=== PATIENT | male | born 1970 | race Caucasian/White ===

== ENCOUNTER → 2019-08-08 | Outpatient (CLI) | payer OTHER ==
[~2019-08-08] MED LIST: FLEXERIL PO; NAPROSYN500 MG PO; NORCO 5-325 TA1 EACH PO; PAXIL40 MG PO
== END ==
LOC: SJCVCIMAG 10:11
DX: I07.1 Rheumatic tricuspid insufficiency (principal); R00.0 Tachycardia, unspecified; Z88.5 Allergy status to narcotic agent; Z87.891 Personal history of nicotine dependence; Z79.82 Long term (current) use of aspirin

== ENCOUNTER 2019-08-26 09:02 | Observation (INO) | payer OTHER ==
[~2019-08-26] VITALS: Ht 180.3 cm; Wt 103.9 kg
--- NOTE | ~2019-08-26 | D ---
[facility] [place] [address] DISCHARGE SUMMARY Name: RICHI DOMINGUEZ Room #: 212-P ADM [facility] M.R.#: [id number] Admission: 08/26/19 Attend Phys: Kennedy Liu Discharge: Date of : 70 Report #: [id number] THIS REPORT FOR: cc: Stefan Spencer MD, Neal A. MD Lammoglia, Francisco J. MD ~ THIS REPORT FOR: //name// CC: Kennedy Spencer DATE OF SERVICE: 08/27/2019 ADMITTING DIAGNOSIS: Syncope, dizziness with second-degree type 2 block. DISCHARGE DIAGNOSIS: Syncope, dizziness with second-degree type 2 block. PROCEDURES PERFORMED: 1. Dual chamber pacer implantation. 2. Supervision of conscious sedation. DISCHARGE MEDICATIONS: 1. Home meds. FOLLOWUP: Dr. Liu in 4 weeks. With nurse wound check in 7-10 days. BRIEF CLINICAL HISTORY: See history and physical in chart. HOSPITAL COURSE: The patient was admitted to the hospital and underwent uncomplicated dual-chamber pacer insertion with a Medtronic dual-chamber Wi-Fi enabled a pacemaker. Post-procedure, he remained hemodynamically and electrically stable without issues. He was allowed to ambulate. Chest x-ray demonstrated no pneumothorax and rhythm remained stable. He is now being discharged to home in improved and stable condition to follow up with the previously stated discharge instructions and medications. By: [id number] Kennedy Liu MD /micheal
[2019-08-26 10:28] VITALS: BP 110/75
[2019-08-26 10:51] LABS: ABSOLUTE NEUTROPHILS 4.3 thou/uL (1.4-8.2); EOSINOPHILS 1.8 % (0.0-3.0); HEMATOCRIT 44.7 % (42.0-52.0); HEMOGLOBIN 14.9 gm/dL (14.0-18.0); LYMPHOCYTES 25.8 % (24.0-44.0); MCH 28.6 pg (26.0-34.0); MCHC 33.4 g/dL (28.0-37.0); MCV 85.6 fL (80.0-100.0); PLATELET COUNT 259 thou/uL (150-400); POLYS 65.4 % (36.0-66.0); RBC 5.22 mil/uL (4.50-6.00); RDW 14.4 % (10.5-14.5); WBC 6.5 thou/uL (4.0-11.0)
[2019-08-26] MEDS ORDERED: PROAIR HFA8.5 GM INH (10:51)
[2019-08-26] MEDS ORDERED: XANAX1 MG PO (10:52)
[2019-08-26] MEDS ORDERED: ABILIFY 5 MG TAB5 M1 PO (10:53)
[2019-08-26] MEDS ORDERED: FISH OIL 1,0001 EAC9 PO (10:54)
[2019-08-26] MEDS ORDERED: ASPIR 8181 M1 PO (10:54)
[2019-08-26] MEDS ORDERED: HYDROCODON-ACE1 EAC5 PO (10:57)
[2019-08-26] MEDS ORDERED: LEVO-T25 MCG PO (10:58)
[2019-08-26] MEDS ORDERED: VIAGRA100 MG PO (10:58)
[2019-08-26 11:10] LABS: CALCIUM 8.8 mg/dL (8.5-10.1); POTASSIUM 4.2 mmol/L (3.5-5.1)
[2019-08-26 13:45] VITALS: BP 125/88
--- NOTE | 2019-08-26 14:35 | NUR ---
PT ORIENTED TO ROOM AND UNIT, BED LOW AND LOCKED, SIDE RAILS UP X3, CALL LIGHT IN REACH. TELE APPLIED, SHOULDER IMOBILIZER ON LEFT. PT WILL BE ON BEDREST FOR 6 HOURS. WILL CONTINUE TO ASSESS.
--- NOTE | 2019-08-26 16:32 | NUR ---
OK TO STOP FREQUENT VITALS S/P PPM PER DR. MOREIRA.
[2019-08-26 21:06] VITALS: BP 136/85
[2019-08-27 00:50] VITALS: BP 118/86
--- NOTE | 2019-08-27 03:22 | NUR ---
PT ALERT AND ORIENTED. VSS. LEFT ARM IMMOBOLIZER IN PLACE, S/P PACEMAKER PLACEMENT. DENIES SOB, OR CHEST PAIN. MILD INCISION PAIN ALLEVIATED BY PAIN MEDS. PT WAS OFF BEDREST BEFORE THE BEGINNING OF NOC SHIFT. AMBULATING INDEPENDENTLY TO THE BATHROOM . NO EVENTS OVER NIGHT. WILL CONTINUE WITH POC.
[2019-08-27 04:45] VITALS: BP 133/83
[2019-08-27 07:41] VITALS: BP 130/94
--- NOTE | 2019-08-27 08:11 | NUR ---
ASSUMED CARE OF PT AT SHIFT CHANGE: AWAKE, C/O PAIN IN LEFT SHOULDER, DECLINED HYDROCODONE, ASKED FOR TYELNOL SAID THEY BOTH WORK FOR HIM ABOUT THE SAME. CLEAR LUNGS IN SPITE OF SMOKING CURRENTLY. POSSIBLE D/C; GAVE HIM INFO ABOUT HOW THIS USUALLY WORKS TO AVOID ANY DISAPPOINTMENT. NO BM BUT HE STATES HE USUALLY DOES AFTER BFAST. LEFT FOR CXR. IMMOBILIZER ON PER ORDERS. WILL CONTINUE TO MONITOR. SEE SEPARATE INTERVENTIONS FOR ASSESSMENTS. ENCOURAGE DPT TO USE CALL LIGHT FOR ANY NEEDS
[2019-08-27 11:16] VITALS: BP 125/81
[2019-08-27 11:30] VITALS: BP 125/81
--- NOTE | 2019-08-27 12:48 | NUR ---
DISCHARGE GONE OVER, IV AND TELE REMOVED, FAMILY CALLED AND MED PICKED UP FROM [facility]. PT'S RIDE IS COMING FROM [facility]N [facility]. HE'S INSTRUCTED TO CALL WHEN RIDE IS HERE. ALL CONSENTS SIGNED. PT WILL BE WHEELED OUT TO ED TO RIDE UPON HER ARRIVAL
--- NOTE | 2019-08-27 12:57 | CATHLAB ---
[facility] [address] [place] [address] INVASIVE PROCEDURE REPORT Name: RICHI DOMINGUEZ Room #: 212-P [facility] Ev Clark#: [id number] Admission: 08/26/19 Attend Phys: Kennedy Liu Discharge: Date of : 70 Report #: [id number] THIS REPORT FOR: cc: Stefan Spencer MD, Neal A. MD Lammoglia, Francisco J. MD ~ APPROVED REPORT Study performed: 08/26/2019 11:35:13 Patient Status: Out-Patient Room #: Exam: Insertion of Dual Chamber Permanent Pacemaker Indications: 49-year-old male patient with Mobitz second-degree type II block and history of syncope The patient is a 49 year-old male with a history of Syncope lightheadedness with second-degree type II block. Conscious Sedation Start time: 1145 End Time: 1324 Versed 6 mg Implanted Devices: RV: MODEL#[id number],SN:[id number], EXP DATE:2021-05-05 RA: MODEL#[id number],SN:[id number], EXP DATE:2020-07-05 GENERATOR:MODEL#[id number],SN:[id number],EXP DATE:2020-12-11 Procedure The patient underwent informed consent. We discussed the details of the procedure including the risks, which include, but not limited to bleeding, infection, vascular damage, cardiac perforation, and pneumothorax. He understood these risks and was willing to proceed. As such, he was brought to the EP/Cardiac Catheterization laboratory in a fasting and sedated state and prepped and draped in a The patient underwent conscious sedation, with no related complications. The patient was brought to the EP/Cardiac Catheterization laboratory and the left chest and shoulder were prepped and draped in a sterile manner. During this case, Fluoroscopy and no contrast were used for imaging. The left subclavian region was infiltrated with 2% Lidocaine [address] [address] INVASIVE PROCEDURE REPORT Name: ANGELICARICHI JAFFE Room #: 212-P [facility] [place] ..#: [id number] Admission: 08/26/19 Attend Phys: Kennedy Cardoza Discharge: Date of : 70 Report #: [id number] subcutaneous anesthesia. A transverse incision was made in the left upper chest cavity. The subcutaneous pocket was formed via blunt dissection. Percutaneous venous access was achieved and an introducer sheath was inserted into the left Subclavian vein. Sheaths were positions using the modified Seldinger technique Through the introducer sheaths the atrial and ventricular lead wires were positioned in the right atrial appendage and right ventricular apex respectively. Capturing and sensing thresholds were verified. Electrode Parameters P Wave: 1.8mV R Wave: 6.1mV Atrial Threshold: 0.5@0.40 Ventricular Threshold: 0.5@0.40 Atrial Resistance: 513 OHMS Ventricular Resistance: 1007 OHMS The lead and pulse generator were placed into the subcutaneous pocket. Sharp and sponge counts were confirmed to be correct. At this time the pocket was closed subcutaneously with a 2 oh nonabsorbable suture with a running and locking stitch into individual layers and the skin was closed with a 3-0 absorbable suture utilizing a subcuticular stitch. The operative site was dressed in sterile fashion with Steri-Strips 4 x 4 OpSite and the patient was transferred to the floor in stable condition. Complications The patient tolerated the procedure well and there were no complications associated with the procedure. Findings Estimated Blood Loss: 5 cc Conclusion 1. Successful implantation of a Medtronic dual-chamber pacemaker Recommendations 1. Routine post pacemaker insertion protocol <ELECTRONICALLY SIGNED> By: Kennedy Liu MD 08/27/19 1255 1255 1255 Kennedy Liu MD /INF
== END 2019-08-27 13:00 | disposition home or self-care (01) ==
LOC: CATH 09:02 → 2N 14:08 → CATH 14:33 → 2N 08-27 13:00
PROVIDERS: ADMIT Internal Medicine
DX: I44.1 Atrioventricular block, second degree (principal)